=== PATIENT | female | born 1965 | race Caucasian/White ===

== ENCOUNTER 2016-10-26 07:56 | Inpatient (IN) | payer OTHER ==
[2016-10-13 14:36] LABS: WBC (NOT ORDERED) (RFLEX) 0 (0-5)
[2016-10-13 15:21] LABS: BASOPHILS 0.3 %; BASOPHILS ABSOLUTE 0.01 10/3/uL (0.0-0.16); EOSINOPHILS 3.6 %; EOSINOPHILS ABSOLUTE 0.13 10/3/uL (0.0-0.53); HEMATOCRIT 38.7 % (36.0-48.0); HEMOGLOBIN 12.9 g/dL (12.0-16.0); LYMPHOCYTES 32.1 %; LYMPHOCYTES ABSOLUTE 1.17 10/3/uL (0.67-4.30); MEAN CORPUS HGB CONC 33.3 g/dL (32.0-36.0); MEAN CORPUSCULAR HEMOGLOB 30.6 pg (26.0-34.0); MEAN CORPUSCULAR VOLUME 91.9 fL (80-100); MEAN PLATELET VOLUME 10.2 fL (9.2-13.0); MONOCYTES 9.3 %; MONOCYTES ABSOLUTE 0.34 10/3/uL (0.21-1.20); NEUTROPHILS 54.7 %; NEUTROPHILS ABSOLUTE 1.99 10/3/uL (2.02-8.40); PLATELET COUNT 300 10/3/uL (150-400); RBC DISTRIBUTION WIDTH 12.8 % (12.0-16.0); RED CELL COUNT 4.21 10/6/uL (4.0-5.6); WHITE BLOOD CELLS 3.6 10/3/uL (4.5-10.5)
[2016-10-13 15:25] LABS: MANUAL DIFF NO %
[2016-10-13 15:27] LABS: ASCORBIC ACID (UR NOT ORDER) NEG (NEG); BILIRUBIN, URINE NEGATIVE (NEG); KETONE, URINE NEGATIVE (NEG); LEUKOCYTE ESTERASE(NOT OR NEG (NEG)
[2016-10-13 15:34] LABS: INTERNATIONAL NORMAL RATI 1.1 UNITS (-); PROTIME (NOT ORD) 13.7 SEC (12.0-14.5)
[2016-10-13 15:42] LABS: A/G RATIO 1.3 (0.7-1.9); ALBUMIN 3.9 G/DL (3.5-5.0); ALKALINE PHOSPHATASE 81 U/L (45-117); BUN (BLOOD UREA NITROGEN) 9 MG/DL (6-23); CALCIUM, SERUM 8.4 MG/DL (8.5-10.4); CHLORIDE, SERUM 107 MMOL/L (96-112); CO2 (CARBON DIOXIDE) 30 MMOL/L (24-34); GFR AFRICAN AMERICAN 100 ML/MIN (>=60); GFR NON AFRICAN AMERICAN 86 ML/MIN (>=60); GLOBULIN 2.9 G/DL (2.5-4.1); GLUCOSE, SERUM 79 MG/DL (60-99); SGOT(AST) 20 U/L (5-40); SGPT(ALT) 27 U/L (5-65); SODIUM, SERUM 144 MMOL/L (135-148); TOTAL BILIRUBIN 0.5 MG/DL (0-1.2); TOTAL PROTEIN 6.8 G/DL (6.0-8.5)
--- NOTE | ~2016-10-26 | OP ---
Record Of Operation [facility] [address] [place]. [address] NAME: KATRINA MENDIETA : 67 STATUS : ADM IN PAT#: [id number] AGE: 51 ADM/REG DATE : 10/26/16 MR#: [id number] REPORT SERV DATE: 10/26/16 DICTATED BY: PROMISE BACON DATE: 10/26/16 REPORT STATUS : Draft TRANSCRIBED BY: JULIANNE DATE: 10/26/16 DATE OF PROCEDURE: 10/26/2016 PREOPERATIVE DIAGNOSIS: Severe left hip degenerative joint disease. POSTOPERATIVE DIAGNOSIS: Severe left hip degenerative joint disease. PROCEDURE: Uncemented total hip arthroplasty, Tri-Lock. SIDE: Left. LIVER TRIMMER: See chart. ANESTHESIA: See chart. SIZE: See chart. ESTIMATED BLOOD LOSS: About 100 mL. PROCEDURE IN DETAIL: The patient was taken to the operating room and placed supine on the table without incident. Anesthetic was induced per the anesthesiologist. A Coker catheter was placed by the nurse in the standard sterile technique. The correct side for the procedure was identified by preoperative markings and matched with the consent form. All personnel in the room were in agreement regarding the procedure, patient, and side. The patient was then carefully positioned and carefully padded and prepped and draped in the normal sterile fashion. The patient received prophylactic preoperative antibiotics at the appropriate time. The preoperative x-ray was brought up on the monitor. Again, this was reviewed with the staff in the room. According with the preoperative plan, and angled, an anterolateral incision was made centered over the trochanter extending from proximal posterior to distal anterior. Electrocautery was used to maintain meticulous hemostasis. The IT band was split in line with its fibers. A Charnley retractor was placed over saline moistened laps. A standard anterolateral approach to the hip was carried out dissecting in line with the vastus medialis fibers lifting the inferior 20% of the vastus medialis, proximally the interior 20% of the gluteus medius and gluteus minimus tendons off the anterior capsule. Periosteal elevator was used to elevate soft tissue gently directly off the proximal anterior femoral bone. Appropriate retractors were carefully placed. Complete anterior capsulectomy was performed. The hip was then carefully dislocated with a combination of traction maneuver by the training assistant and scooping the ball out of the socket with a Hohmann. A femoral neck osteotomy was marked according to what had been preoperatively planned with a broach as a template. The distance for the femoral neck osteotomy was measured with a ruler. A femoral neck osteotomy was made with an oscillating saw under appropriate retraction. Meticulous hemostasis was again obtained. The leg was then brought up out of the anterior bag and positioned with the lower extremity in external rotation and slight flexion. Acetabular retractors were placed carefully palpating to be sure that they were directly on the bone. Record Of Operation [facility] [address] [place]. [address] NAME: KATRINA MENDIETA : 67 STATUS : ADM IN PAT#: [id number] AGE: 51 ADM/REG DATE : 10/26/16 MR#: [id number] REPORT SERV DATE: 10/26/16 DICTATED BY: PROMISE BACON DATE: 10/26/16 REPORT STATUS : Draft TRANSCRIBED BY: JULIANNE DATE: 10/26/16 The acetabular labrum was excised with electrocautery and rongeur. Pulvinar fat was removed with a large curette and rongeur and again meticulous hemostasis was obtained. Sequential reamers were used in the acetabulum to 1 mm. less than the final size which was chosen. This was felt to give excellent interference fit. The acetabular fossa was then copiously irrigated with pulsatile lavage and actual acetabular component was placed and impacted and checked to make sure it was down snug. The overall alignment was checked. The acetabular dress operator was then removed. Screws were placed in the standard fashion. A drill, depth gauge and self tapping screw placement taking care not to plunge as the drill holes were carefully placed. A trial liner was then placed and attention directed back to the proximal femur. The leg was placed back into the anterior bag. The proximal femur was prepared using a box chisel following by a T-handled reamer to determine the intramedullary alignment. This was followed by sequential broaches up to the final broach. Once it was seated in the appropriate position, a Calcar reamer was used to plane the proximal femur. Trial reduction was then done with a trial prosthetic ball and neck. A straight edge was used to compare the tip of the trochanter to center of the ball relationship to what had been noted on the preoperative x-ray. Careful reduction was then done of the total hip. Palpation was done to ascertain and compare leg lengths by palpating the nonoperative leg and also by checking soft tissue tension. The stability of the hip was checked in full extension with full external rotation and in full flexion with adduction, flexion and internal rotation. The hip was then re-dislocated with a bone hook. The femoral trial and femoral broach were removed. The acetabulum was then prepared under appropriate retraction by removing the trial liner. A central hole eliminator was placed and tightened. The shell was irrigated out. The actual insert was placed and impacted and then checked to be sure it was down snug with a joker. The leg was again positioned in the bag. The proximal femur exposed, irrigated and the actual thermal prosthesis was taken from the lead customer service representative and impacted. Once it was down, the trunnion was cleansed with a wet and dry lap and the prosthetic thermal head was placed and impacted and checked to be sure it was down snug. The acetabulum was irrigated and reduction was obtained. Again, we checked soft tissue tension, leg length and stability as described above. The hip was closed in a layered fashion with a 5 mm. Mersilene tape placed through a single drill hole in the proximal anterior/superior trochanter reattaching the gluteus medius and minimus fibers. The vastus lateralis, gluteus medius, and gluteus minimus were then closed in a sleeve. Drain was placed between the vastus and the IT band exiting distally anteriorly. The IT band was closed. Subcutaneous closure and skin closure were then obtained. A sterile dressing was applied. The patient was carefully positioned into a supine position and then awakened. The patient was then carefully transferred to the stretcher to be returned to the postoperative care unit without incident. COMPLICATION: None. SPECIMENS: Left femoral head. WTB/MODL Record Of Operation [address] [place]. [address] NAME: KATRINA MENDIETA : 67 STATUS : ADM IN [facility]#: [id number] AGE: 51 ADM/REG DATE : 10/26/16 MR#: [id number] REPORT SERV DATE: 10/26/16 DICTATED BY: PROMISE BACON DATE: 10/26/16 REPORT STATUS : Draft TRANSCRIBED BY: MODL DATE: 10/26/16 Cecilia Bacon M.D. / [id number] CC: Ky Schuster Jr., M.D.
[~2016-10-26 07:56] MED LIST: MOBIC15 MG PO
[2016-10-27 05:35] LABS: INTERNATIONAL NORMAL RATI 1.2 UNITS (-); PROTIME (NOT ORD) 15.2 SEC (12.0-14.5)
[2016-10-27 05:43] LABS: HEMATOCRIT 30.1 % (36.0-48.0); HEMOGLOBIN 10.1 g/dL (12.0-16.0)
[2016-10-27 05:46] LABS: BUN (BLOOD UREA NITROGEN) 8 MG/DL (6-23); CALCIUM, SERUM 8.3 MG/DL (8.5-10.4); CHLORIDE, SERUM 107 MMOL/L (96-112); CREATININE 0.76 MG/DL (0.55-1.02); GFR AFRICAN AMERICAN 106 ML/MIN (>=60); GFR NON AFRICAN AMERICAN 91 ML/MIN (>=60); SODIUM, SERUM 141 MMOL/L (135-148)
[2016-10-27 05:48] LABS: CO2 (CARBON DIOXIDE) 24 MMOL/L (24-34); GLUCOSE, SERUM 119 MG/DL (60-99)
[2016-10-28 06:28] LABS: INTERNATIONAL NORMAL RATI 1.3 UNITS (-); PROTIME (NOT ORD) 15.6 SEC (12.0-14.5)
[2016-10-28 06:52] LABS: HEMATOCRIT 33.5 % (36.0-48.0); HEMOGLOBIN 11.1 g/dL (12.0-16.0)
[2016-10-28] MEDS ORDERED: C5 PO (15:14)
[2016-10-28] MEDS ORDERED: ZOFRAN4 PO (15:15)
[2016-10-28] MEDS ORDERED: PCET PO (15:19)
[2016-10-29] MEDS ORDERED: ULTRAM50 PO (12:25)
[2016-10-29] MEDS ORDERED: STOOL SOFTENER OTC PO (12:26)
[2016-10-29] MEDS ORDERED: CLARIT10 PO (12:27)
[2016-10-29] MEDS ORDERED: ALLERGY SHOT IM (12:28)
== END 2016-10-28 16:29 | disposition home or self-care (01) | DRG 470 ==
LOC: SDC/OF 07:56 → PACU 11:39 → 3JRC 13:04
PROVIDERS: Specialist
PROC: 0SRB02A Replacement of Left Hip Joint with Metal on Polyethylene Synthetic Substitute, Uncemented, Open Approach (ICD-10-PCS; principal; 2016-10-26 09:15)
DX: M16.12 Unilateral primary osteoarthritis, left hip (principal); R11.0 Nausea; Z28.21 Immunization not carried out because of patient refusal
CPT/HCPCS: 36415; 71020; 72170; 80048; 80053; 81001; 84703; 85014; 85018; 85025; 85610; 86850; 86900; 86901; 87641; 88304; 88311; 93005; 97110-GP; 97116-GP; 97162-GP; 97165-GO; A9270-GY; C1713; C1776; J0690; J1170; J1885; J2250; J2274; J2405; J2710; J2795; J3010

== ENCOUNTER 2016-10-29 10:00 | Observation (INO) | payer OTHER ==
--- NOTE | ~2016-10-29 | DS ---
Discharge Summary [facility] [address] [place]. [address] NAME: KATRINA MENDIETA : 67 STATUS : DIS [place] PAT#: [id number] AGE: 51 ADM/REG DATE : 10/29/16 MR#: [id number] REPORT SERV DATE: 10/31/16 DICTATED BY: JR. IVY WILLIAM JOHN DATE: 10/30/16 REPORT STATUS : Draft TRANSCRIBED BY: JULIANNE DATE: 10/30/16 ADMISSION DATE: 10/29/2016 DISCHARGE DATE: 10/30/2016 DISCHARGE DIAGNOSES: 1. Orthostatic presyncope. 2. Left total hip arthroplasty with left hip pain last week. 3. Physiologic bradycardia. OPERATIONS, PROCEDURES, AND TREATMENTS: Include: 1. CT of the brain done 10/30/2015, which was negative. 2. Chest x-ray done 10/30/2015, which showed left basilar discoid atelectasis. 3. Carotid blood flow study which was normal with antegrade vertebral flow. 4. Echocardiogram showed an ejection fraction of 55% with a normal left and right diastolic and systolic function. DISCHARGE MEDICATIONS: Include: 1. Stool softener daily as needed. 2. Claritin 10 mg daily. 3. Coumadin 7.5 mg daily. HOSPITAL COURSE: The patient was a 51-year-old white female, who underwent a total hip arthroplasty of her left hip on 10/26/2016. She had some issues with orthostatic symptoms following the procedure. She was discharged home in the next day, had a presyncope/syncopal episode. The patient has a long-standing history of "low blood pressure" and has had near syncope multiple times. She is on tramadol. For initial history, physical, and data, please see Dr. Siddiqui's excellent dictated history and physical. The patient was admitted to the Clinical Decision Unit. She was monitored on telemetry where there was no significant arrhythmia noted. She had an echocardiogram which was normal with an ejection fraction of 55%. She had a carotid ultrasound which was unremarkable. I discussed with the patient that she has a long-standing relatively low blood pressure. We discussed the importance of support stockings as well as resting for 3-5 minutes between position changes. The patient voices understanding and would like to go home. In addition, her INR was 1.3 on Coumadin 5 mg. We did increase the Coumadin to 7.5 mg. I wrote a prescription for 2.5 mg tablets to take in addition to her 5 mg stock she has at home. She will follow with Dr. Mcgee on Sunday with an INR as scheduled. DISCHARGE DIET: Regular. ACTIVITY: As tolerated. For discharge exam and laboratory, please see daily progress note. Discharge Summary [address] [place]. [address] NAME: KATRINA MENDIETA : 67 STATUS : DIS [place] PAT#: [id number] AGE: 51 ADM/REG DATE : 10/29/16 MR#: [id number] REPORT SERV DATE: 10/31/16 DICTATED BY: JR. IVY WILLIAM JOHN DATE: 10/30/16 REPORT STATUS : Draft TRANSCRIBED BY: JULIANNE DATE: 10/30/16 JERILYN/JULIANNE Juan Ivy Jr, MD / [id number] CC: MD Enrike Marc Jr., M.D.
--- NOTE | ~2016-10-29 | HP ---
History And Physical [place] [id number] [facility] [place]. [address] NAME: KATRINA MENDIETA : 67 STATUS : ADM [place] PAT#: [id number] AGE: 51 ADM/REG DATE : 10/29/16 MR#: [id number] REPORT SERV DATE: 10/29/16 DICTATED BY: ANKITA CAMARA DATE: 10/29/16 REPORT STATUS : Draft TRANSCRIBED BY: MODBarbara DATE: 10/29/16 DATE OF ADMISSION: 10/29/2016 CHIEF COMPLAINT: Syncopal. HISTORY OF PRESENT ILLNESS: This is a 51-year-old female with medical history significant for severe osteoarthritis, status post left hip replacement surgery on 10/26/2016. It was noted that the patient underwent hip replacement three days ago. Postop, the patient's blood pressure was noted to be trending low. The patient received IV fluid resuscitation. The patient's blood pressure improved. The patient was kept in the hospital for 48 hours for observation after the procedure. The patient's blood pressure remained steady in the 100s and was subsequently discharge home. Twenty-four hours after discharge, the patient re-presented back to the emergency room with complaints of a syncopal episode at home. It was noted that the patient was trying to get out of the bathroom, when she felt dizzy, felt lightheaded, and subsequently passed out for a few seconds. Her witnessed the episode. No history of trauma to the head. No jerking-like movements in all extremities. The patient denies any preceding chest pain. No headaches. No blurry visions. It was noted that the patient's blood pressure was checked at home, it was within in the low 80s, and EMS was subsequently called to the patient's house. On arrival to the ER, it was noted that the patient's blood pressure was 96/33. The patient was started on IV fluid resuscitation. At the time of my evaluation, the patient's blood pressure was running in the 100s. No associated fever. No history of blood loss. No history of skin bruises. No cough. No dysuria. No polyuria. The patient reported that she has had multiple episodes of presyncopal episodes starting from the age of [age]. She reported that she has never been evaluated for this condition. She notes that she is very active. She walks almost seven miles a day at work and she drinks water, about 100 ounces of water a day, to keep herself hydrated. No history of similar episodes in the family. PAST MEDICAL HISTORY: Severe osteoarthritis. PAST SURGICAL HISTORY: 1. History of hip replacement surgery on 10/26/2016. 2. History of bilateral breast augmentation surgery. ALLERGIES: NO KNOWN DRUG ALLERGIES. SOCIAL HISTORY: She denies smoking cigarettes. Drinks alcohol occasionally. Denies any illicit drug use. FAMILY HISTORY: Extensive family history of breast cancer in the mother and siblings. Also noted a history of CVA in the mother. Denies any history of heart disease or history of sudden cardiac . REVIEW OF SYSTEMS: History And Physical [address] [address] NAME: KATRINA MENDIETA : 67 STATUS : ADM [place] PAT#: [id number] AGE: 51 ADM/REG DATE : 10/29/16 MR#: [id number] REPORT SERV DATE: 10/29/16 DICTATED BY: ANKITA CAMARA DATE: 10/29/16 REPORT STATUS : Draft TRANSCRIBED BY: JULIANNE DATE: 10/29/16 HEENT: No nose bleeds. No blurred vision. No dizziness. Oral mucosa dry. NEUROLOGIC: No history of seizures. No history of headaches. No history of head trauma. CARDIOVASCULAR: Denies chest pain. Denies shortness of breath. Denies orthopnea, PND, or palpitation. RESPIRATORY: Denies any cough. No fever. No chills. No wheezing. ABDOMEN: Denies any abdominal pain. No nausea. No vomiting. No diarrhea. GENITOURINARY: Denies any dysuria, frequency, or urgency. MUSCULOSKELETAL: Positive for left hip pain. No bleeding from the site of surgery. No pain in any other joint. HEMATOLOGIC/LYMPHATIC: No diffuse lymphadenopathy is noted. No petechiae. No bleeding from any orifices. ENDOCRINE: Denies any heat intolerance or cold intolerance. Denies any excessive weight gain or weight loss. SKIN: Denies any hyperpigmentation of the skin. Denies any rash. PHYSICAL EXAMINATION: VITAL SIGNS: On my evaluation, blood pressure in supine position was 98/44 mmHg, pulse was 60 beats per minute, respiratory rate was 16 cycles per minute, saturating 100% on room air. Orthostatics vitals were attempted; however, was unable to obtain due to severe left hip pain. GENERAL: Lying down in bed comfortably. Able to speak in full sentences. NEUROLOGIC: Alert and oriented x3. No focal neurologic deficit. Cranial nerves II through XII intact. Reflexes normal. HEENT: Normocephalic, atraumatic. Pupils equal, round, and reactive. Extraocular muscles intact. NECK: Supple. No JVD. No bruit. CHEST: Equal expansion. Nontender. LUNGS: Clear to auscultation bilaterally. No wheezing. No crackles. No rhonchi. HEART: S1, S2. No murmurs. Regular rate and rhythm. ABDOMEN: Bowel sounds normoactive. Soft and nontender. No palpably enlarged organomegaly. EXTREMITIES: No pedal edema. LABORATORY TESTS: Hematology: WBC 8.1, hemoglobin 11.4, hematocrit 34.4, and platelets 218. Chemistry: Sodium 140, potassium 4.2, chloride 107, bicarb 22, BUN 8, creatinine 0.68. GFR 102. Calcium 8.1, magnesium 1.8. Troponin less than 0.02. RADIOLOGY: Chest x-ray. Impression: 1. Discoid atelectasis at the left base. 2. No other acute cardiopulmonary disease. SUMMARY: This is a 51-year-old female who presented to the hospital 24 hours after being discharged from the hospital where she underwent a left hip replacement, presenting with an episode of syncope. ASSESSMENT AND PLAN: 1. Syncope, due to postural hypotension. The patient was noted to have significant hypotension on presentation. Blood pressure was in the 80s at home. Since being in History And Physical [address] [address] NAME: KATRINA MENDIETA : 67 STATUS : ADM [place] PAT#: [id number] AGE: 51 ADM/REG DATE : 10/29/16 MR#: [id number] REPORT SERV DATE: 10/29/16 DICTATED BY: ANKITA CAMARA DATE: 10/29/16 REPORT STATUS : Draft TRANSCRIBED BY: MODL DATE: 10/29/16 the ER, blood pressure continues to range in the 90s, diastolics in the 50s. Currently on IV fluids. Definitive etiology of postural hypertension unclear at this time. Given the patient has had similar episodes of syncopal episodes due to postural hypotension in the past, we will place the patient on cardiac telemonitoring for the next 24 hours to monitor for any significant arrhythmias. EKG at this time shows sinus bradycardia with heart rates in the 60s. Troponin is essentially negative. I will complete further workup for syncope by having a CT of the head without contrast since the patient has been on chronic anticoagulation after surgery. I will also obtain an echocardiogram to rule out valvular heart disease and obtain a carotid Doppler to rule out carotid stenosis. I will also check an estimation manager cortisol to rule out adrenal insufficiency. I will also obtain a TSH and free T4 to rule out hypothyroidism in this patient. 2. Left hip pain, status post hip replacement surgery. We will consult Physical Therapy to assist the patient with movement while in the hospital. We will continue the patient's home dose of warfarin of 5 mg daily for prophylactic deep venous thrombosis. 3. Bradycardia. The patient reported that her heart rate has always been in the 60s because she has been very athletic all her life. She walks up to about seven miles a day and goes to the gym, which may explain the patient's bradycardia; however, given symptoms of syncope, we will obtain an echocardiogram. We will place the patient on cardiac telemonitoring and continue to monitor. 4. The patient will be admitted to the CDU under the patient's status, pending further evaluation. 5. Code status. Full code. 6. Deep venous thrombosis prophylaxis. Contraindicated as the patient is currently on anticoagulation. 7. The patient will be admitted under the Hospitalist Service. Dr. Mcgee, the patient's primary orthopedic surgeon, will be notified of the patient's current admission. IOO/MODL Ankita Camara MD / [id number] CC: Irina Frankel MD
[~2016-10-29 10:00] MED LIST changes: +C5 PO; +PCET PO; +ZOFRAN4 PO
[2016-10-29 11:10] LABS: BASOPHILS 0.1 %; BASOPHILS ABSOLUTE 0.01 10/3/uL (0.0-0.16); EOSINOPHILS 0.6 %; EOSINOPHILS ABSOLUTE 0.05 10/3/uL (0.0-0.53); HEMATOCRIT 34.4 % (36.0-48.0); HEMOGLOBIN 11.4 g/dL (12.0-16.0); IMMATURE GRANULOCYTES 0.2 %; IMMATURE GRANULOCYTES ABSOLUTE 0.02 10/3/uL (0.0-0.11); LYMPHOCYTES 11.3 %; LYMPHOCYTES ABSOLUTE 0.92 10/3/uL (0.67-4.30); MEAN CORPUS HGB CONC 33.1 g/dL (32.0-36.0); MEAN CORPUSCULAR HEMOGLOB 31.2 pg (26.0-34.0); MEAN CORPUSCULAR VOLUME 94.2 fL (80-100); MEAN PLATELET VOLUME 10.4 fL (9.2-13.0); MONOCYTES 6.7 %; MONOCYTES ABSOLUTE 0.54 10/3/uL (0.21-1.20); NEUTROPHILS 81.1 %; NEUTROPHILS ABSOLUTE 6.58 10/3/uL (2.02-8.40); PLATELET COUNT 218 10/3/uL (150-400); RBC DISTRIBUTION WIDTH 12.5 % (12.0-16.0); RED CELL COUNT 3.65 10/6/uL (4.0-5.6)
[2016-10-29 11:11] LABS: ER CBC TAT 0 Hrs 08 Mins; MANUAL DIFF NO %; WHITE BLOOD CELLS 8.1 10/3/uL (4.5-10.5)
[2016-10-29 11:18] LABS: INTERNATIONAL NORMAL RATI 1.3 UNITS (-); PARTIAL THROMBO TIME 25.6 SEC (22.5-37.2); PROTIME (NOT ORD) 15.6 SEC (12.0-14.5)
[2016-10-29 11:28] LABS: BUN (BLOOD UREA NITROGEN) 8 MG/DL (6-23); CALCIUM, SERUM 8.1 MG/DL (8.5-10.4); CHEST PAIN PROFILE TAT 0 Hrs 25 Mins; CHLORIDE, SERUM 107 MMOL/L (96-112); CO2 (CARBON DIOXIDE) 22 MMOL/L (24-34); CREATININE 0.68 MG/DL (0.55-1.02); GFR AFRICAN AMERICAN 118 ML/MIN (>=60); GFR NON AFRICAN AMERICAN 102 ML/MIN (>=60); GLUCOSE, SERUM 86 MG/DL (60-99); POTASSIUM, SERUM 4.2 MMOL/L (3.5-5.3); SODIUM, SERUM 140 MMOL/L (135-148); TROPONIN I <0.02 NG/ML (<0.05)
[2016-10-29] MEDS ORDERED: ULTRAM50 PO (12:25)
[2016-10-29] MEDS ORDERED: STOOL SOFTENER OTC PO (12:26)
[2016-10-29] MEDS ORDERED: CLARIT10 PO (12:27)
[2016-10-29] MEDS ORDERED: ALLERGY SHOT IM (12:28)
[2016-10-29 17:09] LABS: A/G RATIO 0.7 (0.7-1.9); ALBUMIN 2.4 G/DL (3.5-5.0); ALKALINE PHOSPHATASE 62 U/L (45-117); GLOBULIN 3.6 G/DL (2.5-4.1); PHOSPHORUS, SERUM 2.9 MG/DL (2.5-4.5); SGOT(AST) 45 U/L (5-40); SGPT(ALT) 23 U/L (5-65); TOTAL BILIRUBIN 0.3 MG/DL (0-1.2)
[2016-10-30 06:25] LABS: BASOPHILS 0.4 %; BASOPHILS ABSOLUTE 0.02 10/3/uL (0.0-0.16); EOSINOPHILS 1.8 %; HEMOGLOBIN 10.2 g/dL (12.0-16.0); IMMATURE GRANULOCYTES 0.2 %; IMMATURE GRANULOCYTES ABSOLUTE 0.01 10/3/uL (0.0-0.11); LYMPHOCYTES ABSOLUTE 1.42 10/3/uL (0.67-4.30); MEAN CORPUS HGB CONC 33.3 g/dL (32.0-36.0); MEAN CORPUSCULAR HEMOGLOB 31.4 pg (26.0-34.0); MEAN CORPUSCULAR VOLUME 94.2 fL (80-100); MEAN PLATELET VOLUME 10.2 fL (9.2-13.0); MONOCYTES 7.6 %; MONOCYTES ABSOLUTE 0.43 10/3/uL (0.21-1.20); NEUTROPHILS ABSOLUTE 3.71 10/3/uL (2.02-8.40); PLATELET COUNT 233 10/3/uL (150-400); RBC DISTRIBUTION WIDTH 12.5 % (12.0-16.0); RED CELL COUNT 3.25 10/6/uL (4.0-5.6); WHITE BLOOD CELLS 5.7 10/3/uL (4.5-10.5)
[2016-10-30 06:26] LABS: HEMATOCRIT 30.6 % (36.0-48.0); MANUAL DIFF NO %
[2016-10-30 06:40] LABS: ALBUMIN 2.7 G/DL (3.5-5.0); BUN (BLOOD UREA NITROGEN) 8 MG/DL (6-23); CHLORIDE, SERUM 107 MMOL/L (96-112); CO2 (CARBON DIOXIDE) 26 MMOL/L (24-34); CREATININE 0.59 MG/DL (0.55-1.02); FREE T4 0.98 NG/DL (0.76-1.46); GFR AFRICAN AMERICAN 124 ML/MIN (>=60); GFR NON AFRICAN AMERICAN 107 ML/MIN (>=60); GLUCOSE, SERUM 90 MG/DL (60-99); POTASSIUM, SERUM 4.3 MMOL/L (3.5-5.3); SODIUM, SERUM 141 MMOL/L (135-148)
[2016-10-30 10:48] LABS: INTERNATIONAL NORMAL RATI 1.3 UNITS (-); PROTIME (NOT ORD) 16.5 SEC (12.0-14.5)
[2016-10-30] MEDS ORDERED: C25 PO (17:00)
== END 2016-10-30 17:20 | disposition home or self-care (01) ==
LOC: ER 10:00 → CDU1 12:21
PROVIDERS: Emergency Medicine; Internal Medicine
DX: I95.1 Orthostatic hypotension (principal); M19.90 Unspecified osteoarthritis, unspecified site; R00.1 Bradycardia, unspecified; Z98.890 Other specified postprocedural states; Z96.642 Presence of left artificial hip joint; Z79.01 Long term (current) use of anticoagulants; Z79.899 Other long term (current) drug therapy; Z98.51 Tubal ligation status
CPT/HCPCS: 70450; 71010; 80048; 80053; 80069; 81001; 82533; 83735; 84100; 84439; 84443; 84484; 85025; 85610; 85730; 93005; 93880; 96361; 96374; 99284; A9270-GY; C8929; G0378; J2405; Q9957